=== PATIENT | female | born 1955 | race Caucasian/White ===

== ENCOUNTER → 2018-05-13 | Outpatient (CLI) | payer BC ==
--- NOTE | 2018-05-17 13:23 | BD ---
EXAMINATION TYPE: Axial Bone Density DATE OF EXAM: 05/13/2018 COMPARISON: NONE CLINICAL HISTORY: 62 YR OLD FEMALE....ICD-10 CODE: M85.80 SPECIFIED DISORDER OF BD Height: 62 Weight: 189 FRAX RISK QUESTIONS: Secondary Osteoporosis: YES 3. Menopause before 45: YES AT 43 YRS OLD RISK FACTORS HISTORY OF: Active: MODERATE Postmenopausal woman: HYST AT AGE 43 YRS OLD Take estrogen and/or progesterone medications: TOOK FOR 18 YRS, STOPPED 4 YRS AGO MEDICATIONS: Prednisone or other steroids: NASACORT PRN Additional Medications: VIT D, BP MEDS, OMEPRAZOLE Additional History: HYPERTENSION EXAM MEASUREMENTS: Bone mineral densitometry was performed using the [employer]. Bone mineral density as measured about the Lumbar spine is: ----- L1-L4(G/cm2): 0.957 T Score Values are as follows: ----- L1: -1.5 ----- L2: -2.0 ----- L3: -2.2 ----- L4: -1.8 ----- L1-L4: -1.9 Bone mineral density FIRST BONE DENSITY AT [facility] Bone mineral density about the R hip (g/cm2): 0.919 Bone mineral density about the L hip (g/cm2): 0.920 T Score values are as follows: -----R Neck: -1.0 -----L Neck: -1.6 -----R Total: -0.7 -----L Total: -0.7 Bone mineral density FIRST BONE DENSITY AT [facility] FRAX%s: THERE IS A 8.4% CHANCE FOR A MAJOR OSTEOPOROTIC FX AND A 0.9% FOR HIP....PROBABILITY OF FX IN 10 YR TIME IMPRESSION: Osteopenia (T Score between -2.5 and -1) femoral neck level left hip and overall in the low back. There is slightly increased risk of fracture and the patient may be considered for treatment. Re-Screen 2-5 years. NOTE: T-SCORE=SD OF THE YOUNG ADULT MEAN.
== END | disposition home or self-care (01) ==
LOC: RADBDWWP 08:31
PROVIDERS: ATTEND Family Medicine
DX: M85.852 Other specified disorders of bone density and structure, left thigh (principal); M85.88 Other specified disorders of bone density and structure, other site
CPT/HCPCS: 77080

== ENCOUNTER → 2018-09-13 | Outpatient (CLI) | payer BC ==
--- NOTE | 2018-09-15 12:04 | MM ---
Reason for exam: screening (asymptomatic). Last mammogram was performed 1 year and 4 months ago. History: Patient is postmenopausal and is nulliparous. Took progesterone for 1 year 6 months beginning at age 41. Physical Findings: A clinical breast exam by your physician is recommended on an annual basis and results should be correlated with mammographic findings. MG Screening Mammo w CAD Bilateral CC and MLO view(s) were taken. Prior study comparison: May 20, 2017, mammogram. December 10, 2015, mammogram. The breast tissue is almost entirely fat. No significant changes when compared with prior studies. ASSESSMENT: Negative, BI-RAD 1 RECOMMENDATION: Routine screening mammogram of both breasts in 1 year.
== END | disposition home or self-care (01) ==
LOC: RADMAMWWP 07:09
PROVIDERS: ATTEND Family Medicine
DX: Z12.31 Encounter for screening mammogram for malignant neoplasm of breast (principal)
CPT/HCPCS: 77067

== ENCOUNTER 2018-10-26 01:35 | Inpatient (IN) | payer BC ==
[2018-10-26] MEDS ORDERED: ASPIRIN 81 MG PO STA (02:16)
[2018-10-26] MEDS ORDERED: NITROGLYCERIN SL TABS 0.4 MG TAB SUBLINGUAL STA (02:18)
[2018-10-26] MEDS ORDERED: HEPARIN SODIUM,PORCINE 5,000 UNIT/ML 1 ML VIAL IV ONE (02:20)
[2018-10-26] MEDS ORDERED: HEPARIN SODIUM,PORCINE 5,000 UNIT/ML 1 ML VIAL IV PRN (02:20)
[2018-10-26 02:21] LABS: Anisocytosis Slight; Basophils # (A) 0.1 k/uL (0-0.2); Basophils % (A) 1 %; Eosinophils # (A) 0.2 k/uL (0-0.7); Eosinophils % (A) 2 %; HCT 42.2 % (34.0-46.0); HGB 13.9 gm/dL (11.4-16.0); Lymphocytes # (A) 2.9 k/uL (1.0-4.8); Lymphocytes % (A) 32 %; MCH 31.6 pg (25.0-35.0); MCHC 33.1 g/dL (31.0-37.0); MCV 95.5 fL (80.0-100.0); Mean Platelet Volume 8.1; Monocytes # (A) 0.4 k/uL (0-1.0); Monocytes % (A) 4 %; Neutrophils # (A) 5.3 k/uL (1.3-7.7); Neutrophils % (A) 59 %; Platelet Count 196 k/uL (150-450); RBC 4.42 m/uL (3.80-5.40); RDW 16.7 % (11.5-15.5)
--- NOTE | 2018-10-26 02:27 | ED ---
Chest Pain HPI - General Source: patient, EMS Mode of arrival: EMS <Ha Mcduffie - Last Filed: 10/26/18 03:32> <Thomas Clifford - Last Filed: 10/26/18 03:45> - General Chief Complaint: Chest Pain Stated Complaint: chest pain Time Seen by Provider: 10/26/18 02:04 - History of Present Illness Initial Comments: Patient is 63-year-old female presenting to emergency Department with chief complaint of chest pressure. Patient was brought to the emergency department he AMS. Patient reports she developed chest pain about 2 hours ago after she came home from work. Patient reports she was preparing some food when she developed substernal chest pressure that began radiating to the left arm. Patient also reports a short episode of diaphoresis. Patient reports an occasional "skipped beat" which has only been occurring for the past 2 hours. Patient does have a smoking history. Patient does have a family history of cardiovascular disease. Patient is diagnosed with hypertension and hypercholesterolemia and is currently treated with medication. Patient denies any nausea or vomiting. Patient reports the chest pressure is nonexertional and nonreproducible. (Ha Mcduffie) - Related Data Allergies Allergy/AdvReac Type Severity Reaction Status Date / Time sulindac [From Clinoril] AdvReac Rash/Hives Verified 10/26/18 01:58 Review of Systems ROS Other: All systems not noted in ROS Statement are negative. <Ha Mcduffie - Last Filed: 10/26/18 03:32> ROS Other: All systems not noted in ROS Statement are negative. <Thomas Clifford - Last Filed: 10/26/18 03:45> ROS Statement: Those systems with pertinent positive or pertinent negative responses have been documented in the HPI. EKG Findings - EKG Comments: EKG Findings:: EKG1: Sinus tach with PVC, ST elevation in V2, left axis deviation, T-wave inversion in aVF. Ventricular rate 105 ND interval 162, QRS duration 70, QT/QTC 342/452,p-r-t axes 60 -17 16. EKG 2: Sinus tachycardia with PVC, ST elevation in V2. Ventricular rate 106, ND interval 150, QRS duration 74, QT/QTC 326/433, p-r-t axes 46 -25 23 <Ha Mcduffie - Last Filed: 10/26/18 03:32> Past Medical History Past Medical History: Hyperlipidemia, Hypertension Additional Past Medical History / Comment(s): heart murmur, glaucoma, History of Any Multi-Drug Resistant Organisms: None Reported Past Surgical History: Hysterectomy Additional Past Surgical History / Comment(s): cataracts, "female part surgery a few times", possibly APPY Past Psychological History: Anxiety Smoking Status: Former smoker Past Alcohol Use History: None Reported Past Drug Use History: None Reported <Ha Mcduffie - Last Filed: 10/26/18 03:32> General Exam Limitations: no limitations General appearance: alert, in no apparent distress, obese Head exam: Present: atraumatic, normocephalic, normal inspection Eye exam: Present: normal appearance, PERRL, EOMI Pupils: Present: normal accommodation ENT exam: Present: normal exam, normal oropharynx, mucous membranes moist, TM's normal bilaterally, normal external ear exam Neck exam: Present: normal inspection, full ROM Respiratory exam: Present: normal lung sounds bilaterally Cardiovascular Exam: Present: normal rhythm, tachycardia, systolic murmur GI/Abdominal exam: Present: soft, normal bowel sounds Extremities exam: Present: normal inspection, full ROM Back exam: Present: normal inspection Neurological exam: Present: alert, oriented X3 Psychiatric exam: Present: normal affect, normal mood Skin exam: Present: warm, intact, normal color <Ha Mcduffie - Last Filed: 10/26/18 03:32> Course Vital Signs 10/26/18 10/26/18 10/26/18 01:49 01:55 02:00 Temperature 97.6 F Pulse Rate 198 H 107 H Pulse Rate [ 103 H Cash Accountant ] Respiratory 20 18 Rate Blood Pressure 167/72 154/76 O2 Sat by Pulse 97 95 Oximetry 10/26/18 02:30 Temperature Pulse Rate 107 H Pulse Rate [ Cash Accountant ] Respiratory 19 Rate Blood Pressure 160/84 O2 Sat by Pulse 93 L Oximetry Chest Pain MDM - Differential Diagnosis AMI, ACS <Ha Mcduffie - Last Filed: 10/26/18 03:32> <Thomas Clifford - Last Filed: 10/26/18 03:45> - MDM Patient is 63-year-old male presenting to emergency Department with a chief complaint of chest pain. The symptoms began approximately 2 hours ago prior to ED arrival via EMS. Patient did report initially short episode of diaphoresis. Patient reports substernal, nonexertional, nonreproducible chest pain that radiates to the left arm. Patient denies vomiting. EKG does indicate a situation V2 and T-wave inversions aVF. Patient is in sinus tach with intermittent PVC. Chest workup conducted. Patient has an elevated troponin of 0.059. Cardiology consulted. Patient placed on heparin drip. Patient said to undergo cardiac catheterization. Patient has a heart score of 6. Dr. Clifford also examined the patient and is in agreement with the treatment plan. He spoke with Dr. Zimmerman regarding cardiac catheterization. Admitting physician is Dr. Wright. (Ha Mcduffie) I saw this patient in conjunction with the physician community relations assistant. I performed independent history and physical exam. Agree with case management. (Thomas Clifford) Disposition Is patient prescribed a controlled substance at d/c from ED?: No Time of Disposition: 03:21 <Ha Mcduffie - Last Filed: 10/26/18 03:32> <Thomas Clifford - Last Filed: 10/26/18 03:45> Clinical Impression: Acute non-ST elevation myocardial infarction (NSTEMI) Disposition: ADMITTED IP TO THIS HOSP Condition: Stable Instructions (If sedation given, give patient instructions): Chest Pain (ED) Additional Instructions: Patient will be admitted Referrals: Benny Russell III, MD [Primary Care Provider] - 1-2 days
[2018-10-26] MEDS ORDERED: HEPARIN SOD,PORK IN 0.45% NACL 25,000 UNIT in 0.45% NACL 1 250ML.BAG IV SCH (02:30)
[2018-10-26 02:31] LABS: INR 0.9 (<1.2); Partial Thromboplastin Time 25.7 sec (22.0-30.0); Prothrombin Time 9.9 sec (9.0-12.0)
[2018-10-26 02:37] LABS: ALT 44 U/L (9-52); AST 36 U/L (14-36); African American GFR (CKD) >90 (>60 ml/min/1.73 sqM); Albumin 5.1 g/dL (3.5-5.0); Alkaline Phosphatase 117 U/L (38-126); Anion Gap 15 mmol/L; Blood Urea Nitrogen 25 mg/dL (7-17); Calcium 10.2 mg/dL (8.4-10.2); Carbon Dioxide 20 mmol/L (22-30); Chloride 104 mmol/L (98-107); Glucose 155 mg/dL (74-99); Non-African American GFR(CKD) 90 (>60 ml/min/1.73 sqM); Potassium 4.5 mmol/L (3.5-5.1); Sodium 139 mmol/L (137-145); Total Bilirubin 0.5 mg/dL (0.2-1.3); Total Protein 8.5 g/dL (6.3-8.2)
[2018-10-26] MEDS ORDERED: LIDOCAINE 1% INJ 10MG/ML (20 ML MDV) ONE (03:36)
[2018-10-26] MEDS ORDERED: IV FLUID CONTINUATION 500 ML IV ONE (03:59)
[2018-10-26] MEDS ORDERED: MIDAZOLAM PF (FBP) 2 MG/2 ML VIAL IV ONE ×2 (03:59→04:07)
[2018-10-26] MEDS ORDERED: METOPROLOL TARTRATE 5 MG/5 ML VIAL IVP ONE ×2 (04:01→04:02)
[2018-10-26] MEDS ORDERED: LIDOCAINE 1% INJ 10MG/ML (20 ML MDV) SQ ONE (04:04)
[2018-10-26] MEDS ORDERED: BIVALIRUDIN BOLUS 250 MG/50 ML IV ONE (04:16)
[2018-10-26] MEDS ORDERED: BIVALIRUDIN 250 MG in SODIUM CHLORIDE 0.9% 50 ML IV ONE (04:16)
[2018-10-26] MEDS: NITROGLYCERIN 1000MCG/10ML SYRINGE INTRACORON ONE ×2 (04:22→04:29)
[2018-10-26] MEDS ORDERED: CLOPIDOGREL 75 MG TAB ONE (04:30)
[2018-10-26] MEDS ORDERED: CLOPIDOGREL 75 MG TAB PO ONE (04:36)
[2018-10-26] MEDS ORDERED: IOPAMIDOL-370 125ML BTL INJ ONE (04:37)
[2018-10-26] MEDS ORDERED: ATROPINE SULFATE 0.1 MG/ML 10ML SYRINGE IV PRN (04:39)
[2018-10-26] MEDS ORDERED: NITROGLYCERIN SL TABS 0.4 MG TAB SUBLINGUAL PRN (04:39)
[2018-10-26] MEDS ORDERED: RX INFO: IV CONTRAST WAS GIVEN 1 EACH MISC MISCELLANE PRN (04:39)
[2018-10-26] MEDS ORDERED: ZOLPIDEM 5 MG TAB PO PRN (04:39)
[2018-10-26] MEDS ORDERED: MAG HYDROX/AL HYDROX/SIMETH 30 ML CUP PO PRN (04:39)
[2018-10-26] MEDS ORDERED: SODIUM CHLORIDE 0.9% 1,000 ML IV SCH (04:45)
--- NOTE | 2018-10-26 04:45 | P.CRDCN ---
History of Present Illness Consult date: 10/26/18 Chief complaint: Chest pain History of present illness: This is a pleasant 63-year-old female patient with a past medical history significant for hypertension, dyslipidemia, obesity, and possible underlying diabetes, presented to the emergency room complaining of chest discomfort. The patient stated that the discomfort started about 2 hours, she described it as a pressure across the chest, radiating to left arm, and according to the ER note it was associated with sweating. No dizziness, lightheadedness, or syncope. The initial EKG showed sinus rhythm with non- specific changes in the anterior leads. Because of the ongoing chest discomfort, we decided to pursue with a coronary angiogram. The coronary angiogram revealed critical disease involving the mid LAD with a long tubular lesion and the patient underwent successful stenting of the mid LAD using a drug-eluting stent with an excellent angiographic results. Currently, the patient still have a chest discomfort but she stated that it's better compared to before. No prior cardiac history and the patient never seen by a back panel padder in the past. She stated that she used to smoke but she quit smoking long time ago. No known family history of coronary artery disease. The patient is going to be admitted to cardiac floor and I will obtain an echocardiogram was Doppler to evaluate the LV function meanwhile she will be on dual antiplatelet therapy along with high intensity statin along with metoprolol as well as lisinopril. Past Medical History Past Medical History: Hyperlipidemia, Hypertension Additional Past Medical History / Comment(s): heart murmur, glaucoma, History of Any Multi-Drug Resistant Organisms: None Reported Past Surgical History: Hysterectomy Additional Past Surgical History / Comment(s): cataracts, "female part surgery a few times", possibly APPY Past Psychological History: Anxiety Smoking Status: Former smoker Past Alcohol Use History: None Reported Past Drug Use History: None Reported Medications and Allergies Allergies Allergy/AdvReac Type Severity Reaction Status Date / Time sulindac [From Clinoril] AdvReac Rash/Hives Verified 10/26/18 01:58 Physical Exam Vitals: Vital Signs Temp Pulse Pulse Resp BP Pulse Ox 10/26/18 03:20 100 18 191/81 96 10/26/18 03:10 115 H 160/74 99 10/26/18 03:00 98 161/70 98 10/26/18 02:50 99 19 164/64 98 10/26/18 02:45 108 H 154/131 96 10/26/18 02:40 116 H 19 163/104 99 10/26/18 02:35 123 H 20 147/121 98 10/26/18 02:30 107 H 19 160/84 93 L 10/26/18 02:00 107 H 18 154/76 95 10/26/18 01:55 103 H 10/26/18 01:49 97.6 F 198 H 20 167/72 97 Intake and Output 10/25/18 10/25/18 10/26/18 14:59 22:59 06:59 Intake Total 100 Balance 100 Intake: IV 100 Other: Weight 89.811 kg - Constitutional General appearance: no acute distress - Respiratory Respiratory: bilateral: CTA - Cardiovascular Rhythm: regular Heart sounds: normal: S1, S2 Results 10/26/18 02:10 10/26/18 02:10 Cardiac Enzymes 10/26/18 10/26/18 Range/Units 02:10 02:10 AST 36 (14-36) U/L Troponin I 0.059 H* (0.000-0.034) ng/mL Coagulation 10/26/18 Range/Units 02:10 PT 9.9 (9.0-12.0) sec APTT 25.7 (22.0-30.0) sec CBC 10/26/18 Range/Units 02:10 WBC 9.0 (3.8-10.6) k/uL RBC 4.42 (3.80-5.40) m/uL Hgb 13.9 (11.4-16.0) gm/dL Hct 42.2 (34.0-46.0) % Plt Count 196 (150-450) k/uL Comprehensive Metabolic Panel 10/26/18 Range/Units 02:10 Sodium 139 (137-145) mmol/L Potassium 4.5 (3.5-5.1) mmol/L Chloride 104 (98-107) mmol/L Carbon Dioxide 20 L (22-30) mmol/L BUN 25 H (7-17) mg/dL Creatinine 0.72 (0.52-1.04) mg/dL Glucose 155 H (74-99) mg/dL Calcium 10.2 (8.4-10.2) mg/dL AST 36 (14-36) U/L ALT 44 (9-52) U/L Alkaline Phosphatase 117 (38-126) U/L Total Protein 8.5 H (6.3-8.2) g/dL Albumin 5.1 H (3.5-5.0) g/dL Current Medications Generic Name Dose Route Start Last Admin Trade Name Freq PRN Reason Stop Dose Admin Heparin Sodium (Porcine) 0 unit 10/26/18 02:20 Heparin IV PER PROTOCOL PRN Low PTT Protocol Heparin Sodium/Sodium Chloride 250 mls @ 9.879 mls/hr 10/26/18 02:30 10/26/18 02:54 25,000 unit/ Sodium Chloride IV 11 units/kg/hr .Q24H DANA 9.879 mls/hr Administration Protocol 11 UNITS/KG/HR Intake and Output 10/25/18 10/25/18 10/26/18 14:59 22:59 06:59 Intake Total 100 Balance 100 Intake: IV 100 Other: Weight 89.811 kg Patient Weight 10/26/18 06:59 Weight 89.811 kg 10/26/18 02:10 10/26/18 02:10 Assessment and Plan Assessment: Assessment #1 acute non-ST elevation myocardial infarction #2 critical disease involving the mid LAD #3 status post successful stenting of the mid LAD #4 multiple risk factors including hypertension, dyslipidemia, and obesity #5 possible underlying diabetes Plan #1 dual antiplatelet therapy #2 high intensity statin #3 start the patient on metoprolol as well as lisinopril #4 obtain an echocardiogram was Doppler to evaluate the LV function #5 standard groin care #6 follow-up with the patient Thank you for allowing us participate in her care and we'll continue following up with the patient
--- NOTE | 2018-10-26 04:45 | XR ---
EXAM: XR Chest, 1 View CLINICAL HISTORY: ITS.REASON XR Reason: pain TECHNIQUE: Frontal view of the chest. COMPARISON: 03/23/13 FINDINGS: Lungs: No consolidation or mass. Pleural space: No acute findings Heart: No cardiomegaly. Mediastinum: Unremarkable. Bones/joints: No acute findings. IMPRESSION: No acute cardiopulmonary process.
--- NOTE | 2018-10-26 04:51 | P.PCN ---
Date of Procedure: 10/26/18 Operative Findings: CARDIAC CATHETERIZATION PERFORMING PHYSICIAN: Milton Zimmerman MD, RPVI PROCEDURE PERFORMED: 1. Selective right and left coronary angiogram 2. Left heart catheterization 3. Successful stenting of the mid LAD using 2.5 x 23 mm Xience FRANKIE with an excellent angiographic results and reduction of stenosis from 99% to 0% INDICATION: This is a pleasant 63-year-old female patient with hypertension, dyslipidemia, obesity, and possible underlying diabetes, resented to the emergency room with a chest discomfort and continues to have ongoing chest discomfort. The EKG showed nonspecific changes. The cardiac enzymes came in to be abnormal and consistent was acute non-ST elevation myocardial infarction. Because of that heart ca theterization was advised. COMPLICATION: Non- APPROACH: Right common femoral artery LEVEL OF SEDATION: Moderate was sedation length of 32 minutes PROCEDURE DESCRIPTION: After obtaining an informed consent, the patient was brought to cardiac cath la b. Local anesthesia was performed using lidocaine subcutaneously. The right common femoral artery was cannulated using Seldinger technique, the guidewire passed easily, following that we advanced a 6 Uzbek sheath dilator assembly, the wire and dilator were removed and sheath was flushed. Selective right and left coronary angiogram using a 6-Uzbek JR4 and JL catheters. Following that we did left heart catheterization using 6-Uzbek pigtail catheter. Subsequently we did intervene on the LAD please see a separate paragraph. The procedure was completed there was no complication. SELECTIVE CORONARY ANGIOGRAM: The right coronary artery: Is a large caliber vessel and dominant vessel. Its angiographically normal. Distally bifurcates into PDA and PLV branches both appeared to be angiographically normal. Left main: Is angiographically normal. Bifurcates into left circumflex and left anterior descending artery The left circumflex: Is a large caliber vessel and nondominant vessel. The left circumflex is angiographically normal. It gives rises into the first and second obtuse marginal branches and both appeared to be angiographically normal. The left anterior descending artery: The proximal LAD appears to have mild disease only. It gives rises into the first diagonal branch which is a large caliber vessel and seems to be angiogra phically normal. The mid LAD gives rises into a second diagonal branch which is a moderate caliber vessel and seems to be normal and after that the LAD has a long tubular lesion up to about 99.9% disease. The LAD distally appears to be angiographically normal. HEMODYNAMICS: The LVEDP was about 24 mmHg without significant gradient across aortic valve. PCI OF THE LAD: Anticoagulation was initiated using Angiomax. Subsequently I did use JL 3.5 guide. The LAD was wired using a whisper wire. I did balloon angioplasty using 20 by 12 mm balloon before I deployed 2.5 x 23 millimeter Xience drug-eluting stent where the stent was positioned under fluoroscopy guidance and deployed under 12 ernestina for 20 seconds with the following angiogram showing excellent angiographic results and the procedure was completed without any complication CONCLUSION: #1 acute non-ST deviation myocardial infarction #2 critical disease involving the mid LAD #3 successful stenting of the mid LAD using a drug-eluting stent with an excellent angiographic results POSTPROCEDURE MANAGEMENT: Dual antiplatelet therapy Aggressive cholesterol control Risk factors modifications Follow-up with the patient
[2018-10-26 06:02] VITALS: BMI 35.0
[2018-10-26] MEDS ORDERED: LISINOPRIL 10 MG TAB PO SCH (09:00)
[2018-10-26] MEDS: METOPROLOL TARTRATE 25 MG TAB PO SCH ×2 (09:10→21:32)
[2018-10-26] MEDS: ASPIRIN 325 MG TAB PO SCH (09:11)
[2018-10-26] MEDS: LISINOPRIL 2.5 MG TAB PO SCH (09:44)
--- NOTE | 2018-10-26 12:39 | P.HPIM ---
History of Present Illness 63-year-old pleasant female came in with compensative chest pain pressure-like sensation radiating to the left arm moderate amount with the sweating. Patient has significant EKG changes in the anterior leads because of which patient was taken to Disabilities Services Officer found to have critical disease in LAD which was subsequently stented patient is chest pain-free at this time patient denied any fever chills nausea vomiting. Patient doesn't have any known history of coronary artery diseaseand family history of coronary artery disease patient has mildly elevated troponin before cardiac catheterization. Her exam is pending at this time. Jeovanny martin is presently in dual antiplatelet therapy lisinopril beta jarrell and statin. Review of Systems REVIEW OF SYSTEMS: CONSTITUTIONAL: No fever, no malaise, no fatigue. HEENT: No recent visual problems or hearing problems. Denied any sore throat. CARDIOVASCULAR: No orthopnea, PND, no palpitations, no syncope. PULMONARY: No shortness of breath, no cough, no hemoptysis. GASTROINTESTINAL: No diarrhea, no nausea, no vomiting, no abdominal pain. NEUROLOGICAL: No headaches, no weakness, no numbness. HEMATOLOGICAL: Denies any bleeding or petechiae. GENITOURINARY: Denies any burning micturition, frequency, or urgency. MUSCULOSKELETAL/RHEUMATOLOGICAL: Denies any joint pain, swelling, or any muscle pain. ENDOCRINE: Denies any polyuria or polydipsia. The rest of the 14-point review of systems is negative. Past Medical History Past Medical History: Hyperlipidemia, Hypertension Additional Past Medical History / Comment(s): heart murmur, glaucoma, History of Any Multi-Drug Resistant Organisms: None Reported Past Surgical History: Hysterectomy Additional Past Surgical History / Comment(s): cataracts, "female part surgery a few times", possibly APPY Past Psychological History: Anxiety Smoking Status: Former smoker Past Alcohol Use History: None Reported Past Drug Use History: None Reported - Past Family History Mother Family Medical History: Coronary Artery Disease (CAD), Dementia, Diabetes Mellitus, Hypertension, Myocardial Infarction (VT) Father Family Medical History: Cancer, Myocardial Infarction (VT), Prostate Disorder Additional Family Medical History / Comment(s): lung cancer, prostate cancer Medications and Allergies Home Medications Medication Instructions Recorded Confirmed Type Atorvastatin [Lipitor] 10 mg PO HS 10/26/18 10/26/18 History Cholecalciferol [Vitamin D3 (25 2,000 unit PO DAILY 10/26/18 10/26/18 History Mcg = 1000 Iu)] Irbesartan [Avapro] 150 mg PO HS 10/26/18 10/26/18 History Latanoprost Ophth [Xalatan 0.005%] 1 drops BOTH EYES HS 10/26/18 10/26/18 History Omeprazole 20 mg PO DAILY 10/26/18 10/26/18 History Potassium Chloride ER [K-Dur 20] 20 meq PO DAILY 10/26/18 10/26/18 History aMILoride HCL 5 mg PO DAILY 10/26/18 10/26/18 History Allergies Allergy/AdvReac Type Severity Reaction Status Date / Time sulindac [From Clinoril] AdvReac Rash/Hives Verified 10/26/18 07:54 Physical Exam Vitals: Vital Signs Temp Pulse Pulse Resp BP BP BP 10/26/18 10:15 77 12 129/71 10/26/18 09:45 81 12 139/76 10/26/18 09:15 76 12 134/59 10/26/18 09:00 78 12 134/59 10/26/18 08:45 78 12 123/64 10/26/18 08:30 76 16 110/67 10/26/18 08:21 18 121/62 10/26/18 08:18 18 134/70 10/26/18 08:15 18 136/78 10/26/18 08:12 18 144/77 10/26/18 08:09 18 149/81 10/26/18 08:06 18 148/95 10/26/18 08:02 86 18 148/87 10/26/18 07:55 88 12 10/26/18 07:24 88 12 148/84 136/57 10/26/18 06:24 98.0 F 18 142/82 10/26/18 05:54 97.9 F 16 148/76 10/26/18 05:24 98.0 F 18 136/77 10/26/18 05:09 98.0 F 18 145/72 10/26/18 03:20 100 18 191/81 10/26/18 03:10 115 H 160/74 10/26/18 03:00 98 161/70 10/26/18 02:50 99 19 164/64 10/26/18 02:45 108 H 154/131 10/26/18 02:40 116 H 19 163/104 10/26/18 02:35 123 H 20 147/121 10/26/18 02:30 107 H 19 160/84 10/26/18 02:00 107 H 18 154/76 10/26/18 01:55 103 H 10/26/18 01:49 97.6 F 198 H 20 167/72 Pulse Ox 10/26/18 10:15 95 10/26/18 09:45 93 L 10/26/18 09:15 96 10/26/18 09:00 95 10/26/18 08:45 95 10/26/18 08:30 95 10/26/18 08:21 10/26/18 08:18 10/26/18 08:15 10/26/18 08:12 10/26/18 08:09 10/26/18 08:06 10/26/18 08:02 10/26/18 07:55 10/26/18 07:24 96 10/26/18 06:24 95 10/26/18 05:54 94 L 10/26/18 05:24 93 L 10/26/18 05:09 94 L 10/26/18 03:20 96 10/26/18 03:10 99 10/26/18 03:00 98 10/26/18 02:50 98 10/26/18 02:45 96 10/26/18 02:40 99 10/26/18 02:35 98 10/26/18 02:30 93 L 10/26/18 02:00 95 10/26/18 01:55 10/26/18 01:49 97 Intake and Output 10/25/18 10/26/18 10/26/18 22:59 06:59 14:59 Intake Total 142 600 Output Total 800 1000 Balance -658 -400 Intake: IV 142 Intake, IV Titration 600 Amount Sodium Chloride 0.9% 1, 600 000 ml @ 75 mls/hr IV . [id number] [facility] Rx#:[id number] Output: Urine 800 1000 Other: Voiding Method Indwelling Catheter Weight 89.811 kg PHYSICAL EXAMINATION: GENERAL: The patient is alert and oriented x3, not in any acute distress. Well developed, well nourished. HEENT: Pupils are round and equally reacting to light. EOMI. No scleral icterus. No conjunctival pallor. Normocephalic, atraumatic. No pharyngeal erythema. No thyromegaly. CARDIOVASCULAR: S1 and S2 present. No murmurs, rubs, or gallops. PULMONARY: Chest is clear to auscultation, no wheezing or crackles. ABDOMEN: Soft, nontender, nondistended, normoactive bowel sounds. No palpable organomegaly. MUSCULOSKELETAL: No joint swelling or deformity. EXTREMITIES: No cyanosis, clubbing, or pedal edema. NEUROLOGICAL: Gross neurological examination did not reveal any focal deficits. SKIN: No rashes. Results CBC & Chem 7: 10/26/18 02:10 10/26/18 02:10 Labs: Abnormal Lab Results - Last 24 Hours (Table) 10/26/18 10/26/18 10/26/18 Range/Units 02:10 02:10 02:10 RDW 16.7 H (11.5-15.5) % Carbon Dioxide 20 L (22-30) mmol/L BUN 25 H (7-17) mg/dL Glucose 155 H (74-99) mg/dL Troponin I 0.059 H* (0.000-0.034) ng/mL Total Protein 8.5 H (6.3-8.2) g/dL Albumin 5.1 H (3.5-5.0) g/dL Thrombosis Risk Factor Assmnt - Choose All That Apply Any of the Below Risk Factors Present?: Yes Each Factor Represents 1 point: History of prior major surgery (<1month) Other Risk Factors: No Other congenital or acquired thrombophilia - If yes, enter type in comment: No Thrombosis Risk Factor Assessment Total Risk Factor Score: 1 Thrombosis Risk Factor Assessment Level: Low Risk Assessment and Plan Plan: -Acute non-ST elevation microinfarction status post stenting of LAD: Continue with dual antiplatelet therapy beta jarrell statin and the lisinopril awaiting echocardiogram -Hypertension: Hold off on calcium channel jarrell continue with beta jarrell and lisinopril. -Dyslipidemia: Continue with statin -Mildly elevated blood sugars: Will obtain hemoglobin A1c
--- NOTE | 2018-10-26 17:06 | ECHOF ---
Referral Reason:ACS MEASUREMENTS -------- HEIGHT: 160.0 cm WEIGHT: 89.8 kg BP: 120/60 IVSd: 1.1 cm (0.6 - 1.1) LVIDd: 4.0 cm (3.9 - 5.3) LVPWd: 1.2 cm (0.6 - 1.1) IVSs: 1.1 cm LVIDs: 2.9 cm LVPWs: 1.4 cm LA Diam: 3.3 cm (2.7 - 3.8) LAESV Index (A-L): 21.77 ml/m Ao Diam: 2.5 cm (2.0 - 3.7) LA Diam: 3.1 cm (2.7 - 3.8) MV EXCURSION: 17.918 mm (> 18.000) MV EF SLOPE: 62 mm/s (70 - 150) EPSS: 0.4 cm MV E Hung: 0.58 m/s MV DecT: 139 ms MV A Hung: 0.81 m/s MV E/A Ratio: 0.71 RAP: 5.00 mmHg RVSP: 23.43 mmHg FINDINGS -------- Sinus rhythm. This was a technically adequate study. The left ventricular size is normal. Left ventricular wall thickness is normal. Overall left vent ricular systolic function is moderate-severely impaired with, an EF between 30 - 35 %. Anterseptal Hypokinesis Lateral hypokinesis Inferior Hypokinesis [place] Hypokinesis. Distal Septal Hypokine sis. The right ventricle is normal in size. The left atrial size is normal. Normal LA size by volume 22+/-6 ml/m2. The right atrial size is normal. Interatrial and interventricular septum intact. There is mild aortic valve sclerosis. Mild mitral annular calcification present. Mild mitral regurgitation is present. Mild tricuspid regurgitation present. Right ventricular systolic pressure is normal at < 35 mmHg. There is no evidence of pulmonary hypertension. There is no pulmonic regurgitation present. The aortic root size is normal. There is no pericardial effusion. CONCLUSIONS -------- 1. Sinus rhythm. 2. This was a technically adequate study. 3. The left ventricular size is normal. 4. Left ventricular wall thickness is normal. 5. Overall left ventricular systolic function is moderate-severely impaired with, an EF between 30 - 35 %. 6. Anterseptal Hypokinesis 7. [place] Hypokinesis. 8. Distal Septal Hypokinesis. 9. The right ventricle is normal in size. 10. The left atrial size is normal. 11. Normal LA size by volume 22+/-6 ml/m2. 12. The right atrial size is normal. 13. Interatrial and interventricular septum intact. 14. There is mild aortic valve sclerosis. 15. Mild mitral annular calcification present. 16. Mild mitral regurgitation is present. 17. Mild tricuspid regurgitation present. 18. Right ventricular systolic pressure is normal at < 35 mmHg. 19. There is no evidence of pulmonary hypertension. 20. There is no pulmonic regurgitation present. 21. The aortic root size is normal. 22. There is no pericardial effusion. EELER: Silvia Rajput RDCS
--- NOTE | 2018-10-26 20:01 | PN ---
PROGRESS NOTE This patient was admitted with acute anterior wall myocardial infarction and underwent a stent to the LAD. The patient is doing fairly well. Denies any chest pain. Denies any shortness of breath. Blood pressure is 127/83 mmHg. Heart rate rate is 80 per minute. First and second heart sounds are normal. Lungs are clinically clear to auscultation and percussion. Patient's creatinine is 0.72. Initial troponin was 0.059. We will obtain other troponin q.6 hours x2. Continue the current medications. Echocardiogram and Doppler study was obtained. MMODL / IJN: [id number] /
[2018-10-26 22:44] LABS: Hemoglobin A1C 6.1 % (4.0-6.0)
[2018-10-27] MEDS ORDERED: CLOPIDOGREL 75 MG TAB PO SCH (04:40)
[2018-10-27 08:06] LABS: Basophils % (A) 0 %; Eosinophils # (A) 0.1 k/uL (0-0.7); Eosinophils % (A) 1 %; HCT 37.1 % (34.0-46.0); HGB 12.2 gm/dL (11.4-16.0); Lymphocytes # (A) 2.5 k/uL (1.0-4.8); Lymphocytes % (A) 25 %; MCH 30.5 pg (25.0-35.0); MCHC 32.9 g/dL (31.0-37.0); MCV 92.9 fL (80.0-100.0); Mean Platelet Volume 7.8; Monocytes # (A) 0.7 k/uL (0-1.0); Monocytes % (A) 7 %; Neutrophils # (A) 6.5 k/uL (1.3-7.7); Neutrophils % (A) 65 %; Platelet Count 184 k/uL (150-450); RDW 15.1 % (11.5-15.5)
[2018-10-27 08:25] LABS: African American GFR (CKD) >90 (>60 ml/min/1.73 sqM); Non-African American GFR(CKD) 90 (>60 ml/min/1.73 sqM)
[2018-10-27] MEDS: ASPIRIN 325 MG TAB PO SCH (08:49)
[2018-10-27] MEDS: CLOPIDOGREL 75 MG TAB PO SCH (08:50)
[2018-10-27] MEDS: METOPROLOL TARTRATE 25 MG TAB PO SCH ×2 (08:51→21:39)
[2018-10-27] MEDS: LISINOPRIL 2.5 MG TAB PO SCH (08:51)
--- NOTE | 2018-10-27 15:12 | P.PN ---
Subjective Progress Note Date: 10/27/18 Principal diagnosis: 63-year-old pleasant female came in with compensative chest pain pressure-like sensation radiating to the left arm moderate amount with the sweating. Patient has significant EKG changes in the anterior leads because of which patient was taken to [facility] Inspector found to have critical disease in LAD which was subsequently stented patient is chest pain-free at this time patient denied any fever chills nausea vomiting. Patient doesn't have any known history of coronary artery diseaseand family history of coronary artery disease patient has mildly elevated troponin before cardiac catheterization. Patient is presently in dual antiplatelet therapy lisinopril beta jarrell and statin. 10/27/2018 Patient is sitting up at the site of the bed in no acute distress. Patient states that she has been walking the halls with no difficulties. Patient denies any chest pain, shortness of breath, or palpitations at this time. Patient denies any nausea or vomiting and has tolerated diet. Patient would like to go home today and is currently awaiting cardiology to round this morning. Patient remains afebrile. No overnight events reported. Objective - Vital Signs Vital signs: Vital Signs Temp 98 F 10/27/18 11:27 Pulse 70 10/27/18 11:27 Resp 16 10/27/18 11:27 BP 104/68 10/27/18 11:27 Pulse Ox 92 L 10/27/18 11:21 Intake & Output 10/26/18 10/27/18 10/27/18 18:59 06:59 18:59 Intake Total 1436 300 720 Output Total 1400 Balance 36 300 720 Weight 89.811 kg 88.7 kg Intake: Intake, IV Titration 600 Amount Sodium Chloride 0.9% 1, 600 000 ml @ 75 mls/hr IV . [id number] [facility] Rx#:[id number] Oral 836 300 720 Output: Urine 1400 Other: Voiding Method Toilet Toilet # Voids 1 1 1 # Bowel Movements 1 - Exam GENERAL: The patient is alert and oriented x3, not in any acute distress. Well developed, well nourished. Vital signs are stable. Temp is 98.0F, pulse is 70, respirations are 16, blood pressure is 104/68, oxygen saturation is 92% on room air HEENT: Pupils are round and equally reacting to light. EOMI. No scleral icterus. No conjunctival pallor. Normocephalic, atraumatic. No pharyngeal erythema. No thyromegaly. CARDIOVASCULAR: S1 and S2 present. No murmurs, rubs, or gallops. PULMONARY: Chest is clear to auscultation, no wheezing or crackles. ABDOMEN: Soft, nontender, nondistended, normoactive bowel sounds. No palpable organomegaly. MUSCULOSKELETAL: No joint swelling or deformity. EXTREMITIES: No cyanosis, clubbing, or pedal edema. NEUROLOGICAL: Gross neurological examination did not reveal any focal deficits. SKIN: No rashes. - Labs CBC & Chem 7: 10/27/18 06:19 10/27/18 06:19 Labs: Abnormal Lab Results - Last 24 Hours (Table) 10/26/18 10/26/18 Range/Units 13:09 18:28 Hemoglobin A1c 6.1 H (4.0-6.0) % Troponin I 9.580 H* (0.000-0.034) ng/mL Assessment and Plan Assessment: -Acute non-ST elevation myocardial infarction status post stenting of LAD: Continue with dual antiplatelet therapy beta jarrell statin and the lisinopril; echocardiogram shows an EF between 30 and 35%. Cardiology is following. Patient will undergo a limited echo in the morning per cardiology recommendations. -Hypertension: Hold off on calcium channel jarrell continue with beta jarrell and lisinopril. -Dyslipidemia: Continue with statin -Mildly elevated blood sugars: Will obtain hemoglobin A1c. Hemoglobin A1c is 6.1 Recommendations and discussion: Continue current medications, management, and symptomatic treatment. Cardiology is following closely. Spoke to cardiology CHEMIST INTERN and patient will undergo a limited echo in the morning to reassess. Discussed with the patient at length today about possible discharge in what her plans were and patient states that she would like to go home today and will follow up with cardiology in the outpatient setting as instructed. Patient states that she lives at home alone but has plenty of friends and close by neighbors if she was to need anything. Guarded prognosis. Further recommendations to follow. Possible discharge in 24-48 hours.
--- NOTE | 2018-10-27 15:27 | P.PN ---
Subjective Progress Note Date: 10/27/18 This is a pleasant 63-year-old female patient with a past medical history significant for hypertension, dyslipidemia, obesity, and possible underlying diabetes, presented to the emergency room with an acute anterior wall myocardial infarction. She underwent successful stenting of the mid LAD using a drug-eluting stent with an excellent angiographic result. She had an echocardiogram with Doppler study performed which revealed an overall left ventricular systolic function that was moderately severely impaired with an ejection fraction of 30-35%. She was seen and examined today, she's been up ambulating in the hallway and feels well she denies any further episodes of chest discomfort and her breathing overall has been stable. We have added Aldactone to her medication regime as well as lisinopril, we will continue the metoprolol, aspirin, Lasix. We will get a limited echocardiogram with Doppler study performed tomorrow to assess the patient's LV function. If her LV function remains poor patient may require a LifeVest prior to discharge. Objective - Vital Signs Vital signs: Vital Signs Temp 98 F 10/27/18 11:27 Pulse 70 10/27/18 11:27 Resp 16 10/27/18 11:27 BP 104/68 10/27/18 11:27 Pulse Ox 92 L 10/27/18 11:21 Intake & Output 10/26/18 10/27/18 10/27/18 18:59 06:59 18:59 Intake Total 1436 300 720 Output Total 1400 Balance 36 300 720 Weight 89.811 kg 88.7 kg Intake: Intake, IV Titration 600 Amount Sodium Chloride 0.9% 1, 600 000 ml @ 75 mls/hr IV . [id number] [facility] Rx#:[id number] Oral 836 300 720 Output: Urine 1400 Other: Voiding Method Toilet Toilet # Voids 1 1 1 # Bowel Movements 1 - Exam PHYSICAL EXAMINATION: GENERAL: 63-year-old female in no acute distress at the time of my examination HEENT: Head is atraumatic, normocephalic. Pupils equal, round. Sclera anicteric. Conjunctiva are clear. Mucous membranes of the mouth are moist. Neck is supple. There is no elevated jugular venous pressure. No carotid bruit is heard. HEART EXAMINATION: Heart S1, S2 normal. No murmur or gallop heard. CHEST EXAMINATION: Lungs are clear to auscultation and precussion. No chest wall tenderness is noted on palpation or with deep breathing. ABDOMEN: Soft, nontender. Bowel sounds are heard. No organomegaly noted. EXTREMITIES: 2+ peripheral pulses with no evidence of peripheral edema and no calf tenderness noted. NEUROLOGIC patient is awake, alert and oriented 3 . - Labs CBC & Chem 7: 10/27/18 06:19 10/27/18 06:19 Labs: Abnormal Lab Results - Last 24 Hours (Table) 10/26/18 10/26/18 Range/Units 13:09 18:28 Hemoglobin A1c 6.1 H (4.0-6.0) % Troponin I 9.580 H* (0.000-0.034) ng/mL Assessment and Plan Plan: Assessment and plan #1 acute anterior wall myocardial infarction status post angioplasty and stenting of the LAD #2 hyperlipidemia #3 hypertension #4 obesity Plan We will add Aldactone and lisinopril to the patient's medication regime. We have also requested limited echocardiogram with Doppler study be performed tomorrow to evaluate the LV function. If her LV function remains poor, patient will require a LifeVest prior to discharge for prevention of sudden cardiac . Further recommendations to follow. DNP note has been reviewed, I agree with a documented findings and plan of care. Patient was seen and examined.
[2018-10-28 06:43] LABS: Basophils % (A) 0 %; Eosinophils # (A) 0.1 k/uL (0-0.7); Eosinophils % (A) 1 %; HCT 37.4 % (34.0-46.0); HGB 12.4 gm/dL (11.4-16.0); Lymphocytes # (A) 2.9 k/uL (1.0-4.8); Lymphocytes % (A) 33 %; MCH 30.9 pg (25.0-35.0); MCHC 33.2 g/dL (31.0-37.0); MCV 93.1 fL (80.0-100.0); Mean Platelet Volume 7.3; Monocytes # (A) 0.6 k/uL (0-1.0); Monocytes % (A) 7 %; Neutrophils # (A) 4.8 k/uL (1.3-7.7); Neutrophils % (A) 55 %; Platelet Count 187 k/uL (150-450); RBC 4.01 m/uL (3.80-5.40); RDW 15.1 % (11.5-15.5); WBC 8.7 k/uL (3.8-10.6)
[2018-10-28 08:54] VITALS: RESP 18
[2018-10-28] MEDS: METOPROLOL TARTRATE 25 MG TAB PO SCH (08:56)
[2018-10-28] MEDS: CLOPIDOGREL 75 MG TAB PO SCH (08:56)
[2018-10-28] MEDS ORDERED: LISINOPRIL 5 MG TAB PO SCH (09:00)
[2018-10-28] MEDS ORDERED: ASPIRIN 81 MG PO SCH (09:00)
[2018-10-28] MEDS ORDERED: SPIRONOLACTONE 25 MG TAB PO SCH (09:00)
[2018-10-28 11:45] VITALS: BP 106/56; PULSE 61; TEMP 96.7
--- NOTE | 2018-10-28 11:48 | ECHOF ---
Referral Reason:limited echo assess lvf MEASUREMENTS -------- HEIGHT: 160.0 cm WEIGHT: 88.5 kg BP: 109/54 MV E Hung: 0.45 m/s MV DecT: 233 ms MV A Hung: 0.85 m/s MV E/A Ratio: 0.53 FINDINGS -------- Limited Study for LV Function Pt had echo 10/26/18 EF 30-35%. Overall left ventricular systolic function is mildly impaired with, an EF between 45 - 50 %. [place] H ypokinesis. Anterior Hypokinesis CONCLUSIONS -------- 1. Limited Study for LV Function Pt had echo 10/26/18 EF 30-35%. 2. Overall left ventricular systolic function is mildly impaired with, an EF between 45 - 50 %. 3. [place] Hypokinesis. 4. Anterior Hypokinesis BRAILLE CODER: Silvia Rajput RDCS
--- NOTE | 2018-10-28 14:32 | P.DS ---
Providers Date of admission: 10/26/18 03:30 Expected date of discharge: 10/28/18 Attending physician: Angie Wright Consults: 10/26/18 03:29 Consult Physician Stat Consulting Provider: Milton Zimmerman Reason/Comments: NSTEMI Do you want consulting provider notified?: Already Contacted 10/26/18 04:39 Consult Physician Routine Consulting Provider: [facility] Consult Reason/Comments: Post Interventional patient Do you want consulting provider notified?: Already Contacted Primary care physician: Benny Cardona [facility] Course: final diagnosis Acute non-ST elevation myocardial infarction status post stenting of LAD Hypertension Dyslipidemia Mildly elevated blood sugars: Hemoglobin A1c is 6.1 Discharge disposition Patient is being discharged in a stable condition with guarded prognosis to home and will follow-up with cardiology in the outpatient setting. Total time taken is 35 minutes. History of present illness This is a 63-year-old female who was admitted with chest pain and pressure with radiation to the left arm and was being closely monitored. Cardiology was following closely. During hospitalization patient was sent to the Services Clerk and had stent placement in the LAD. Patient tolerated well. Patient underwent a limited echo to assess LV function this morning per cardiology recommendations which showed left ventricular systolic function mildly impaired with an EF between 45 and 50% of which the echo from 911 showed an EF of 30-35%. Patient denies any chest pain, shortness of breath, or palpitations at this time. Patient has been up and walking on room air with no difficulties. Patient does live at home alone but states that she has friends and family that live close nearby. Patient will follow-up with cardiology in the outpatient setting as discussed. Currently patient's condition is stable with much improvement and would like to go home today. On exam, vital signs are stable. Temp is 96.7F, pulse is 61, respirations are 18, blood pressure is 106/56, and oxygen saturation is 93% on room air. Cardio S1 and S2 are normal. Respiratory system shows clear to auscultation. Abdomen is soft and nontender. Nervous system shows no focal deficits and gait is steady. Please refer to medication reconciliation sheet for a list of medications. Patient Condition at Discharge: Stable Plan - Discharge Summary Discharge Rx Participant: Yes New Discharge Prescriptions: New Spironolactone [Aldactone] 25 mg PO DAILY #30 tab Aspirin 81 mg PO DAILY #30 chew Metoprolol Tartrate [Lopressor] 25 mg PO BID #60 tab Nitroglycerin Sl Tabs [Nitrostat] 0.4 mg SUBLINGUAL Q5M PRN #25 tab PRN Reason: Chest Pain Clopidogrel [Plavix] 75 mg PO DAILY #30 tab Lisinopril [Zestril] 5 mg PO DAILY #30 tab Continue Potassium Chloride ER [K-Dur 20] 20 meq PO DAILY Latanoprost Ophth [Xalatan 0.005%] 1 drops BOTH EYES HS aMILoride HCL 5 mg PO DAILY Omeprazole 20 mg PO DAILY Cholecalciferol [Vitamin D3 (25 Mcg = 1000 Iu)] 2,000 unit PO DAILY Changed Atorvastatin [Lipitor] 80 mg PO HS #30 tab Discontinued Irbesartan [Avapro] 150 mg PO HS Discharge Medication List Cholecalciferol [Vitamin D3 (25 Mcg = 1000 Iu)] 2,000 unit PO DAILY 10/26/18 [History] Latanoprost Ophth [Xalatan 0.005%] 1 drops BOTH EYES HS 10/26/18 [History] Omeprazole 20 mg PO DAILY 10/26/18 [History] Potassium Chloride ER [K-Dur 20] 20 meq PO DAILY 10/26/18 [History] aMILoride HCL 5 mg PO DAILY 10/26/18 [History] Aspirin 81 mg PO DAILY #30 chew 10/28/18 [Rx] Atorvastatin [Lipitor] 80 mg PO HS #30 tab 10/28/18 [Rx] Clopidogrel [Plavix] 75 mg PO DAILY #30 tab 10/28/18 [Rx] Lisinopril [Zestril] 5 mg PO DAILY #30 tab 10/28/18 [Rx] Metoprolol Tartrate [Lopressor] 25 mg PO BID #60 tab 10/28/18 [Rx] Nitroglycerin Sl Tabs [Nitrostat] 0.4 mg SUBLINGUAL Q5M PRN #25 tab 10/28/18 [Rx] Spironolactone [Aldactone] 25 mg PO DAILY #30 tab 10/28/18 [Rx] Follow up Appointment(s)/Referral(s): Milton Zimmerman MD [STAFF PHYSICIAN] - 11/03/18 4:45 pm Benny Russell III, MD [Primary Care Provider] - 11/02/18 1:30 pm (With Mounika ESTATE PLANNING COUNSELOR.) Patient Instructions/Handouts: Heart Healthy Diet (DC), Coronary Intravascular Stent Placement (DC) Activity/Diet/Wound Care/Special Instructions: Activity is limited until follow-up Continue current heart healthy diet Follow-up with primary care provider as well as specialists as instructed and scheduled Discharge Disposition: HOME SELF-CARE
--- NOTE | 2018-10-28 20:18 | PN ---
PROGRESS NOTE This patient was admitted with anterior wall myocardial infarction. Patient is feeling better. Denies any chest pain or shortness of breath. Repeat echocardiogram shows significant improvement in the patient's left ventricular function; only the small area of apical and apicoseptal hypokinesia is noted. Patient is educated regarding the medications, and we will continue the current medications. Patient will be discharged home today. AMNA / ASIFN: [id number] /
== END 2018-10-28 13:39 | disposition home or self-care (01) | DRG 247 ==
LOC: EC 01:35 → 2SICU 03:30 → 3SCARD 04:41
PROVIDERS: ADMIT Hospitalist; ATTEND Hospitalist
PROC: B2111ZZ Fluoroscopy of Multiple Coronary Arteries using Low Osmolar Contrast (ICD-10-PCS; 2018-10-26)
PROC: 027034Z Dilation of Coronary Artery, One Artery with Drug-eluting Intraluminal Device, Percutaneous Approach (ICD-10-PCS; principal; 2018-10-26 03:29)
PROC: 4A023N7 Measurement of Cardiac Sampling and Pressure, Left Heart, Percutaneous Approach (ICD-10-PCS; 2018-10-26 03:29)
DX: I21.4 Non-ST elevation (NSTEMI) myocardial infarction (principal); E78.5 Hyperlipidemia, unspecified; E78.00 Pure hypercholesterolemia, unspecified; I10 Essential (primary) hypertension; R73.9 Hyperglycemia, unspecified; R41.82 Altered mental status, unspecified; H40.9 Unspecified glaucoma; E66.9 Obesity, unspecified; Z68.34 Body mass index [BMI] 34.0-34.9, adult; Z79.899 Other long term (current) drug therapy; Z87.891 Personal history of nicotine dependence; Z86.59 Personal history of other mental and behavioral disorders; Z90.710 Acquired absence of both cervix and uterus; Z98.42 Cataract extraction status, left eye; Z98.41 Cataract extraction status, right eye; Z88.8 Allergy status to other drugs, medicaments and biological substances; Z82.49 Family history of ischemic heart disease and other diseases of the circulatory system; Z83.3 Family history of diabetes mellitus; Z81.8 Family history of other mental and behavioral disorders; Z80.1 Family history of malignant neoplasm of trachea, bronchus and lung; Z80.42 Family history of malignant neoplasm of prostate
CPT/HCPCS: 36415; 71045; 80053; 82565; 83036; 83735; 84484; 85025; 85610; 85730; 93005; 93306; 93458; 96365; 96376; 99285; C1874

== ENCOUNTER 2018-11-17 21:16 | Emergency (ER) | payer BC ==
[2018-11-17 21:31] VITALS: TEMP 98
--- NOTE | 2018-11-17 22:20 | ED ---
General Adult HPI - General Chief complaint: Skin/Abscess/Foreign Body Stated complaint: Hives, heart cath 10/26 Time Seen by Provider: 11/17/18 21:32 Source: patient, RN notes reviewed, old records reviewed Mode of arrival: ambulatory Limitations: no limitations - History of Present Illness Initial comments: 63-year-old female patient past history significant for acute coronary syndrome approximately 3 weeks ago presents to ED for chief complaint of intertrigo. Patient reports that between the fold of her skin she is having itching, irritation. Patient was that she went to urgent care today and they prescribed her nystatin and topical steroid cream. Patient denies any other complaints at this time. Denies any chest pain or shortness of breath. Systemic: Pt denies fatigue, fever/chills. Pt denies weakness, night sweats, weight loss. Neuro: Pt denies headache, visual disturbances, syncope or pre-syncope. HEENT: Pt denies ocular discharge or irritation, otalgia, rhinorrhea, pharyngitis or notable lymphadenopathy. Cardiopulmonary: Pt denies chest pain, SOB, heart palpitations, dyspnea on exertion. Abdominal/GI: Pt denies abdominal pain, n/v/d. : Pt denies dysuria, burning w/ urination, frequency/urgency. Denies new onset urinary or bowel incontinence. MSK: Pt denies myalgia, loss of strength or function in extremities. Neuro: Pt denies new onset weakness, paresthesias. - Related Data Home Medications Medication Instructions Recorded Confirmed Cholecalciferol [Vitamin D3 (25 2,000 unit PO DAILY 10/26/18 10/26/18 Mcg = 1000 Iu)] Latanoprost Ophth [Xalatan 0.005%] 1 drops BOTH EYES HS 10/26/18 10/26/18 Omeprazole 20 mg PO DAILY 10/26/18 10/26/18 Potassium Chloride ER [K-Dur 20] 20 meq PO DAILY 10/26/18 10/26/18 aMILoride HCL 5 mg PO DAILY 10/26/18 10/26/18 Previous Rx's Medication Instructions Recorded Aspirin 81 mg PO DAILY #30 chew 10/28/18 Atorvastatin [Lipitor] 80 mg PO HS #30 tab 10/28/18 Clopidogrel [Plavix] 75 mg PO DAILY #30 tab 10/28/18 Lisinopril [Zestril] 5 mg PO DAILY #30 tab 10/28/18 Metoprolol Tartrate [Lopressor] 25 mg PO BID #60 tab 10/28/18 Nitroglycerin Sl Tabs [Nitrostat] 0.4 mg SUBLINGUAL Q5M PRN #25 tab 10/28/18 Spironolactone [Aldactone] 25 mg PO DAILY #30 tab 10/28/18 Allergies Allergy/AdvReac Type Severity Reaction Status Date / Time sulindac [From Clinor[place]] AdvReac Rash/Hives Verified 11/17/18 21:31 Review of Systems ROS Statement: Those systems with pertinent positive or pertinent negative responses have been documented in the HPI. ROS Other: All systems not noted in ROS Statement are negative. Past Medical History Past Medical History: Coronary Artery Disease (CAD), Hyperlipidemia, Hypertension Additional Past Medical History / Comment(s): heart murmur, glaucoma, History of Any Multi-Drug Resistant Organisms: None Reported Past Surgical History: Heart Catheterization With Stent, Hysterectomy Additional Past Surgical History / Comment(s): cataracts, "female part surgery a few times", possibly APPY Past Psychological History: Anxiety Smoking Status: Former smoker Past Alcohol Use History: None Reported Past Drug Use History: None Reported - Past Family History Mother Family Medical History: Coronary Artery Disease (CAD), Dementia, Diabetes Mellitus, Hypertension, Myocardial Infarction (CT) Father Family Medical History: Cancer, Myocardial Infarction (CT), Prostate Disorder Additional Family Medical History / Comment(s): lung cancer, prostate cancer General Exam - General Exam Comments Initial Comments: Constitutional: NAD, AOX3, Pt has pleasant affect. HEENT: NC/AT, trachea midline, neck supple, no lymphadenopathy. Posterior pharynx non erythematous, without exudates. External ears appear normal, without discharge. Mucous membranes moist. Eyes PERRLA, EOM intact. There is no scleral icterus. No pallor noted. Cardiopulmonary: RRR, no murmurs, rubs or gallops, no JVD noted. Lungs CTAB in anterior and posterior pak. No peripheral edema. Abdominal exam: Abdomen soft and non-distended. Abdomen non-tender to palpation in all 4 quadrants. Bowel sounds active in LLQ. No hepatosplenomegaly. No ecchymosis Neuro: CN II-XII grossly intact. No nuchal rigidity. No raccon eyes, no woods sign, no hemotympanum. No cervical spinal tenderness. MSK: No posterior calf tenderness bilaterally, homans sign negative bilaterally. Posterior tibialis and radial pulse +2 bilaterally. Sensation intact in upper and lower extremities. Full active ROM in upper and lower extremities, 5/5 stregnth. Derm: Intertrigo noted between fold of skin. Limitations: no limitations Course Vital Signs 11/17/18 11/17/18 21:29 22:25 Temperature 98.0 F 98.0 F Pulse Rate 86 81 Respiratory 20 16 Rate Blood Pressure 167/80 158/87 O2 Sat by Pulse 97 98 Oximetry Medical Decision Making - Medical Decision Making 63-year-old female patient with ED for chief complaint of rash and folds of skin. Patient was seen at urgent care earlier today with a prescribed a topical steroid and nystatin. Patient fell signs stable, afebrile. Patient advised to discontinue the steroid exam conjunctiva denies then. Advised to keep area dry and clean. Also recommended possible using nystatin powder available [id number]. Patient returned ER physician worsens and will follow up with primary care provider. Case discussed with Dr. Mao. Disposition Clinical Impression: Intertrigo Disposition: HOME SELF-CARE Condition: Stable Instructions (If sedation given, give patient instructions): Skin Yeast Infection (ED) Additional Instructions: Patient to adhere to previously discussed treatment plan and will take medication(s) as directed. Patient to follow up with PCP in 1-2 days. Patient to return to ED if symptoms do not improve. Keep folds of skin clean and dry. Use nystatin on areas of irritation. Follow- up with primary care provider. Return to ER if condition worsens. Is patient prescribed a controlled substance at d/c from ED?: No Referrals: Benny Russell III, MD [Primary Care Provider] - 1-2 days
[2018-11-17 22:26] VITALS: BP 158/87; PULSE 81; RESP 16
== END 2018-11-17 22:25 | disposition home or self-care (01) ==
LOC: EC 21:16
DX: L30.4 Erythema intertrigo (principal); I25.10 Atherosclerotic heart disease of native coronary artery without angina pectoris; I10 Essential (primary) hypertension; H40.9 Unspecified glaucoma; Z87.891 Personal history of nicotine dependence; Z88.6 Allergy status to analgesic agent; Z79.899 Other long term (current) drug therapy; Z95.5 Presence of coronary angioplasty implant and graft
CPT/HCPCS: 99283

== ENCOUNTER → 2020-01-31 | Outpatient (CLI) | payer MEDICARE ==
--- NOTE | 2020-02-01 08:12 | MM ---
Reason for exam: screening (asymptomatic). Last mammogram was performed 1 year and 5 months ago. History: Patient is postmenopausal and is nulliparous. Took progesterone for 1 year 6 months beginning at age 41. Physical Findings: A clinical breast exam by your physician is recommended on an annual basis and results should be correlated with mammographic findings. MG Screening Mammo w CAD Bilateral CC and MLO view(s) were taken. Prior study comparison: September 13, 2018, bilateral MG screening mammo w CAD. May 20, 2017, mammogram. There are scattered fibroglandular densities. There is no discrete abnormality. ASSESSMENT: Negative, BI-RAD 1 RECOMMENDATION: Routine screening mammogram of both breasts in 1 year.
== END | disposition home or self-care (01) ==
LOC: RADMAMWWP 09:45
PROVIDERS: ATTEND Family Medicine
DX: Z12.31 Encounter for screening mammogram for malignant neoplasm of breast (principal)
CPT/HCPCS: 77067

== ENCOUNTER → 2021-04-28 | Outpatient (CLI) | payer MEDICARE ==
--- NOTE | 2021-04-29 11:11 | MM ---
Reason for exam: screening (asymptomatic). Last mammogram was performed 1 year and 3 months ago. History: Patient is postmenopausal and is nulliparous. Took progesterone for 1 year 6 months beginning at age 41. Physical Findings: A clinical breast exam by your physician is recommended on an annual basis and results should be correlated with mammographic findings. MG Screening Mammo w CAD Bilateral CC and MLO view(s) were taken. Prior study comparison: January 31, 2020, bilateral MG screening mammo w CAD. September 13, 2018, bilateral MG screening mammo w CAD. There are scattered fibroglandular densities. There is no discrete abnormality. ASSESSMENT: Negative, BI-RAD 1 RECOMMENDATION: Routine screening mammogram of both breasts in 1 year.
== END | disposition home or self-care (01) ==
LOC: RADMAMWWP 09:30
PROVIDERS: ATTEND Family Medicine
DX: Z12.31 Encounter for screening mammogram for malignant neoplasm of breast (principal)
CPT/HCPCS: 77067

== ENCOUNTER → 2022-04-29 | Outpatient (CLI) | payer MEDICARE ==
--- NOTE | 2022-04-29 11:28 | BD ---
EXAMINATION TYPE: Axial Bone Density DATE OF EXAM: 04/29/2022 CLINICAL HISTORY: 66 years old Female. ICD-10 CODE: M85.80 DISORDERS OF BONE DENSITY Height: 61.5 Weight: 188 FRAX RISK QUESTIONS: Family History (Parent hip fracture): no History of Fracture in Adulthood: no Secondary Osteoporosis: yes 3. Menopause before 45: yes, 43 RISK FACTORS HISTORY OF: Family History of Osteoporosis: no Active: yes Diet low in dairy products/other sources of calcium: no Postmenopausal woman: yes Lost more than 2 inches in height since high school: no Frequent falls: no Poor Health: no MEDICATIONS: Additional Medications: yes hbp meds, vit d, reflux EXAM MEASUREMENTS: Bone mineral densitometry was performed using the [employer] System. Bone mineral density as measured about the Lumbar spine is: ----- L1-L4(G/cm2): 0.957 T Score Values are as follows: ----- L1: -2.3 ----- L2: -2.9 ----- L3: -1.3 ----- L4: -1.4 ----- L1-L4: -1.9 Z Score Values are as follows: ----- L1: -1.3 ----- L2: -1.9 ----- L3: -0.3 ----- L4: -0.5 ----- L1-L4: -0.9 Bone mineral density has: had a 0.0% since study of: 05/13/2018 Bone mineral density about the R hip (g/cm2): 0.877 Bone mineral density about the L hip (g/cm2): 0.861 T Score values are as follows: -----R Neck: -1.3 -----L Neck: -1.8 -----R Total: -1.0 -----L Total: -1.2 Z Score values are as follows: -----R Neck: -0.1 -----L Neck: -0.6 -----R Total: -0.2 -----L Total: -0.3 Bone mineral density has: Decreased 5.3% since study of: 05/13/2018 FRAX%s: The graph provided illustrates a 9.8% chance for a major osteoporotic fx and a 1.4% chance fo r the hips probability for fx in 10 years time. IMPRESSION: Osteopenia (T Score between -2.5 and -1). There is slightly increased risk of fracture and the patient may be considered for treatment. Re-Screen 2-5 years. NOTE: T-SCORE=SD OF THE YOUNG ADULT MEAN.
--- NOTE | 2022-04-29 12:55 | MM ---
Reason for Exam: Screening (asymptomatic). Last screening mammogram was performed 12 month(s) ago. Patient History: Menarche at age 12. Patient has no children. Left ovary removed at age 41. Right ovary removed at age 20. Hysterectomy at age 41. Postmenopausal. Progesterone for 18 years, 6 months, from age 41 until age 59. Risk Values: Catarina 5 year model risk: 1.9%. NCI Lifetime model risk: 6.4%. Prior Study Comparison: 09/13/2018 Bilateral Screening Mammogram, [facility]. 01/31/2020 Bilateral Screening Mammogram, [facility]. 04/28/2021 Bilateral Screening Mammogram, [facility]. Tissue Density: There are scattered fibroglandular densities. Analyzed By CAD. Overall Assessment: Negative, BI-RAD 1 Management: Screening Mammogram of both breasts in 1 year. Electronically signed and approved by: Linden Lyon M.D.
== END | disposition home or self-care (01) ==
LOC: RADMAMWWP 08:08
PROVIDERS: ATTEND Family Medicine
DX: Z12.31 Encounter for screening mammogram for malignant neoplasm of breast (principal); M85.89 Other specified disorders of bone density and structure, multiple sites; Z78.0 Asymptomatic menopausal state
CPT/HCPCS: 77063; 77067; 77080

== ENCOUNTER → 2023-04-12 | Outpatient (CLI) | payer MEDICARE ==
--- NOTE | 2023-04-12 12:10 | US ---
EXAMINATION TYPE: US venous doppler duplex LE LT DATE OF EXAM: 04/12/2023 11:42 AM COMPARISON: NONE CLINICAL INDICATION: Female, 67 years old with history of R09.89 DVT; left leg pain SIDE PERFORMED: Left TECHNIQUE: The lower extremity deep venous system is examined utilizing real time linear array sonog dorita with graded compression, doppler sonography and color-flow sonography. VESSELS IMAGED: Common Femoral Vein Deep Femoral Vein Greater Saphenous Vein * Femoral Vein Popliteal Vein Small Saphenous Vein * Proximal Calf Veins (* superficial vessels) Left Leg: Negative for DVT IMPRESSION: No evidence for DVT within the left lower extremity imaged from the groin to the upper calf.
== END | disposition home or self-care (01) ==
LOC: RADUSWWP 11:10
PROVIDERS: ATTEND Internal Medicine
DX: R09.89 Other specified symptoms and signs involving the circulatory and respiratory systems (principal)

== ENCOUNTER → 2023-05-24 | Outpatient (CLI) | payer MEDICARE ==
--- NOTE | 2023-05-25 12:45 | MM ---
Reason for Exam: Screening (asymptomatic). Last mammogram was performed 1 year(s) and 1 month(s) ago. Patient History: Menarche at age 12. Patient has no children. Left ovary removed at age 41. Right ovary removed at age 20. Hysterectomy at age 41. Postmenopausal. Progesterone for 18 years, 6 months, from age 41 until age 59. Risk Values: Catarina 5 year model risk: 1.9%. NCI Lifetime model risk: 6.2%. Prior Study Comparison: 05/20/2017 Screening Mammogram, Unknown. 09/13/2018 Bilateral Screening Mammogram, [facility]. 01/31/2020 Bilateral Screening Mammogram, [facility]. 04/28/2021 Bilateral Screening Mammogram, [facility]. 04/29/2022 Bilateral MG 3D screening mammo w/cad, [facility]. Tissue Density: The breasts are heterogeneously dense, which may obscure small masses. Findings: Analyzed By CAD. There is no suspicious group of microcalcifications or new suspicious mass in either breast. Overall Assessment: Negative, BI-RAD 1 Management: Screening Mammogram of both breasts in 1 year. . Patient should continue monthly self-breast exams. A clinical breast exam by your physician is recommended on an annual basis. This exam should not preclude additional follow-up of suspicious palpable abnormalities. Note on Catarina scores and lifetime risk: 1. A Catarina score greater than 3% is considered moderate risk. If this is the case, consider specialist referral to assess eligibility for a risk reducing agent. 2. If overall lifetime risk for the development of breast cancer is 20% or higher, the patient may qualify for future screening with alternating mammogram and breast MRI. Electronically signed and approved by: Boogie Mcdowell M.D. Radiologis
== END | disposition home or self-care (01) ==
LOC: RADMAMWWP 08:41
PROVIDERS: ATTEND Internal Medicine
DX: Z12.31 Encounter for screening mammogram for malignant neoplasm of breast (principal); Z78.0 Asymptomatic menopausal state
CPT/HCPCS: 77063; 77067

== ENCOUNTER 2024-03-01 11:10 | Day surgery (SDC) | payer MEDICARE ==
[2024-02-24 15:37] VITALS: BMI 33.8
[~2024-03-01 11:10] MED LIST: LIDOCAINE 1% (10MG/ML) FOR IV START INTRADERMA PRN; ONDANSETRON 4 MG/2 ML VIAL IVP PRN
[2024-03-01] MEDS: IV FLUID CONTINUATION 1,000 ML IV ONE (12:01)
[2024-03-01] MEDS: LACTATED RINGERS 1,000 ML IV SCH (12:24)
[2024-03-01 12:29] VITALS: TEMP 97.7
[2024-03-01] MEDS ORDERED: PROPOFOL 10 MG/ML 20 ML VIAL IV ONE (12:41)
--- NOTE | 2024-03-01 12:57 | P.PCN ---
Date of Procedure: 03/01/24 Procedure(s) Performed: BRIEF HISTORY: Patient is a 68-year-old pleasant white female scheduled for an elective colonoscopy as a part of screening for colorectal neoplasia PROCEDURE PERFORMED: Colonoscopy. PREOPERATIVE DIAGNOSIS: Screening for colon cancer. IV sedation per Anesthesia. PROCEDURE: After informed consent was obtained, the patient, was brought into the endoscopy unit. IV sedation was administered by Anesthesia under continuous monitoring. Digital rectal examination was normal. Initially the Olympus CF-160 flexible video colonoscope was then inserted in the rectum, gradually advanced into the cecum without any difficulty. Careful examination was performed as the scope was gradually being withdrawn. Ileocecal valve and the appendiceal orifice were visualized and appeared normal. Prep was excellent. Mucosa of the cecum, ascending colon, transverse colon, descending colon, sigmoid colon, and rectum appeared normal. Katter sigmoid diverticulosis retroflexion was performed in the rectum and no lesions were seen. The patient tolerated the procedure well. IMPRESSION: Normal-appearing colon from rectum to cecum with no evidence of colorectal neoplasia Scattered sigmoid diverticula. RECOMMENDATIONS: Findings of this examination were discussed with the patient as well as her family. She was advised to have repeat screening colonoscopy in 10 years.
[2024-03-01 13:08] VITALS: BP 90/52; PULSE 56; RESP 14
== END 2024-03-01 13:53 | disposition home or self-care (01) ==
LOC: ORWHC2ENDO 11:10
PROVIDERS: ATTEND Internal Medicine Gastroenterology
DX: Z12.11 Encounter for screening for malignant neoplasm of colon (principal); K57.30 Diverticulosis of large intestine without perforation or abscess without bleeding; I10 Essential (primary) hypertension; E78.5 Hyperlipidemia, unspecified; I25.2 Old myocardial infarction; I25.10 Atherosclerotic heart disease of native coronary artery without angina pectoris; K21.9 Gastro-esophageal reflux disease without esophagitis; F41.9 Anxiety disorder, unspecified; Z87.891 Personal history of nicotine dependence; Z95.5 Presence of coronary angioplasty implant and graft; Z90.710 Acquired absence of both cervix and uterus; Z90.49 Acquired absence of other specified parts of digestive tract; Z88.0 Allergy status to penicillin; Z88.1 Allergy status to other antibiotic agents; Z88.8 Allergy status to other drugs, medicaments and biological substances; Z79.899 Other long term (current) drug therapy
CPT/HCPCS: J2704; G0121

== ENCOUNTER → 2024-08-09 | Outpatient (CLI) | payer MEDICARE ==
--- NOTE | 2024-08-10 07:38 | MM ---
Reason for Exam: Screening (asymptomatic). Last mammogram was performed 1 year(s) and 2 month(s) ago. Patient History: Menarche at age 12. Patient has no children. Left ovary removed at age 41. Right ovary removed at age 20. Hysterectomy at age 41. Postmenopausal. Progesterone for 18 years, 6 months, from age 41 until age 59. Risk Values: Catarina 5 year model risk: 1.9%. NCI Lifetime model risk: 5.6%. Prior Study Comparison: 04/28/2021 Bilateral Screening Mammogram, [facility]. 04/29/2022 Bilateral MG 3D screening mammo w/cad, [facility]. 05/24/2023 Bilateral MG 3D screening mammo w/cad, [facility]. Tissue Density: There are scattered areas of fibroglandular density. Findings: Analyzed By CAD. Right breast: There is no suspicious group of microcalcifications or new suspicious mass. Left breast: There is no suspicious group of microcalcifications or new suspicious mass. Overall Assessment: Negative, BI-RAD 1 Management: Screening Mammogram of both breasts in [address] [facility] will attempt to contact patient to return for supplemental views and ultrasound if indicated. Patient should continue monthly self-breast exams. A clinical breast exam by your physician is recommended on an annual basis. This exam should not preclude additional follow-up of suspicious palpable abnormalities. Note on Catarina scores and lifetime risk: 1. A Catarina score greater than 3% is considered moderate risk. If this is the case, consider specialist referral to assess eligibility for a risk reducing agent. 2. If overall lifetime risk for the development of breast cancer is 20% or higher, the patient may qualify for future screening with alternating mammogram and breast MRI. [facility], , 08/10/2024 7:35 AM. Electronically signed and approved by: Matt May DO
== END | disposition home or self-care (01) ==
LOC: RADMAMWWP 15:47
PROVIDERS: ATTEND Internal Medicine
DX: Z12.31 Encounter for screening mammogram for malignant neoplasm of breast (principal); R92.323 Mammographic fibroglandular density, bilateral breasts; Z78.0 Asymptomatic menopausal state
CPT/HCPCS: 77063; 77067